=== PATIENT | male | born 1985 | race Caucasian/White ===

== ENCOUNTER 2019-05-15 18:21 | Emergency (ER) | payer SELFPAY ==
[~2019-05-15] VITALS: Ht 180.3 cm; Wt 75.0 kg
[2019-05-15 18:32] VITALS: Ht 180.3 cm; Wt 75.0 kg
[2019-05-15] MEDS ORDERED: TAMIFLU75 MG PO (19:50)
[2019-05-15 20:01] VITALS: BP 124/77
== END 2019-05-15 20:01 | disposition home or self-care (01) ==
LOC: D.ER 18:21
DX: J11.1 Influenza due to unidentified influenza virus with other respiratory manifestations (principal)